=== PATIENT | female | born 1955 | race Caucasian/White ===

== ENCOUNTER 2017-11-05 09:49 | Day surgery (SDC) | payer BC ==
[~2017-11-05] VITALS: Ht 162.6 cm; Wt 79.5 kg
[~2017-11-05 09:49] MED LIST: AMLODIPINE BESY10 MG PO; CARVEDILOL6.25 MG PO; CLONAZEPAM1 MG PO; CRESTOR40 MG PO; LEVOXYL25 MCG PO; PANTOPRAZOLE SO40 MG PO; SERTRALINE HCL50 MG PO; ZETIA10 MG PO
[2017-11-05 10:59] LABS: HEMATOCRIT 32.3 % (36.0-46.0); HEMOGLOBIN 10.1 G/DL (11.9-15.5); MCH 28.1 PG (29.0-34.0); MCHC 31.3 G/DL (30.0-36.0); MCV 89.7 FL (83-99); PLATELET COUNT 137 K/uL (156-360); RBC DIS.WIDTH-CV 13.1 % (11.8-14.6); RBC DIS.WIDTH-SD 42.9 % (39-53)
[2017-11-05 11:14] LABS: CHLORIDE 108 MEQ/L (99-109); POTASSIUM 5.1 MEQ/L (3.7-5.4); SODIUM 144 MEQ/L (136-147)
[2017-11-05 11:20] LABS: CREATININE 3.2 MG/DL (0.6-1.3); GFR ESTIMATE (CALCULATED) 16 mL/min/; GLUCOSE 96 mg/dL (70-99); UREA NITROGEN (BUN) 33 mg/dL (9-23)
[2017-11-05 12:23] VITALS: BP 150/64
[2017-11-05 18:55] VITALS: BP 150/85
[2017-11-05 19:33] VITALS: BP 157/71
== END 2017-11-05 19:40 | disposition home or self-care (01) ==
LOC: SDC 09:49
PROVIDERS: Surgery
DX: I12.0 Hypertensive chronic kidney disease with stage 5 chronic kidney disease or end stage renal disease (principal); N18.5 Chronic kidney disease, stage 5; E78.00 Pure hypercholesterolemia, unspecified; Z88.8 Allergy status to other drugs, medicaments and biological substances; Z91.040 Latex allergy status
CPT/HCPCS: 80048; 85027; J0690; J1100; J1644; J2250; J2405; J2720; J3010; S0020